=== PATIENT | female | born 1940 | race Caucasian/White ===

== ENCOUNTER 2019-05-03 00:52 | Outpatient (CLI) | payer OTHER, SELFPAY ==
--- NOTE | 2019-05-03 15:48 | DI.MAMMO_ITS ---
EXAM: MG MAMMO SCREENING CLINICAL HISTORY: SCREENING, HEALTH CARE MAINTENANCE, Z00.00 TECHNIQUE: Mammograms were interpreted according to the usual protocol including computer analysis w [employer] CAD system, tomosynthesis and C-view imaging. COMPARISON: [facility] [place] 2009 through 2016 FINDINGS: The breasts are composed of mainly fatty density , Breast Density category A. No suspicious masses or suspicious microcalcifications are seen. No skin thickening or abnormal axillary lymph nodes are seen. There has been no significant change from prior exams. IMPRESSION: BI-RADS Category 1 - Negative. Yearly screening mammography is recommended. Breast Density - Category A - Almost entirely fatty
--- NOTE | 2019-05-03 16:00 | DI.DEXA_ITS ---
EXAM: XR DEXA BONE DENSITY W/WO KATJA CLINICAL HISTORY: OSTEOPENIA, M85.80, OSTEOPOROSIS TECHNIQUE: Hologic densitometer COMPARISON: No exams were available for comparison FINDINGS: The KATJA image shows no evidence of compression fractures. The bone mineral density measurements of the lumbar spine correspond to a total T-score -1.3, in the osteopenic range. The bone mineral density measurements of the left hip correspond to a total T-scor e of -1.8 and a femoral neck T-score of -2.4, consistent with osteopenia. Bone mineral density measu rements of the left forearm correspond to a T-score of the distal 3rd of -2.5, in the osteoporotic ra nge. IMPRESSION: Osteoporosis of the left forearm. Osteopenia of the left hip and lumbar spine.
== END 2019-05-03 01:12 ==
PROVIDERS: PCP Internal Medicine Geriatric Medicine; Visit Provider Internal Medicine Geriatric Medicine
DX: M85.88 Other specified disorders of bone density and structure, other site (principal); M81.0 Age-related osteoporosis without current pathological fracture; Z12.31 Encounter for screening mammogram for malignant neoplasm of breast
CPT/HCPCS: 77063; 77067; 77080

== ENCOUNTER 2021-11-13 15:50 | Outpatient (REF) | payer MEDICARE, SELFPAY ==
[2021-11-13 18:40] LABS: HCT 43.1 % (36.0-46.0); HGB 14.1 g/dL (11.2-15.7); MCH 29.1 pg (27.0-33.0); MCHC 32.7 % (32.0-36.0); MCV 89 fL (80-95); MPV 10.7 fL (8.0-11.0); Platelet Count 325 10^3/uL (130-400); RBC 4.84 10^6/uL (3.93-5.22); RDW 13.7 % (11.7-14.6); RDW-SD 44.7 fL
[2021-11-13 20:08] LABS: Hemoglobin A1C 7.1 % (<5.7)
== END 2021-11-13 15:51 | disposition home or self-care (01) ==
LOC: NCHCN 15:50
PROVIDERS: PCP Internal Medicine Geriatric Medicine; Visit Provider Nurse Practitioner Family
DX: E11.39 Type 2 diabetes mellitus with other diabetic ophthalmic complication (principal); F03.90 Unspecified dementia, unspecified severity, without behavioral disturbance, psychotic disturbance, mood disturbance, and anxiety
CPT/HCPCS: 85027; 83036

== ENCOUNTER 2022-03-09 13:38 | Outpatient (REF) | payer MEDICARE, SELFPAY | END 2022-03-09 13:39 | disposition home or self-care (01) | LOC: NCHCN 13:38 | PROVIDERS: PCP Internal Medicine Geriatric Medicine; Visit Provider Nurse Practitioner Family | DX: F03.90 Unspecified dementia, unspecified severity, without behavioral disturbance, psychotic disturbance, mood disturbance, and anxiety (principal); R26.81 Unsteadiness on feet | CPT/HCPCS: 87086 ==

== ENCOUNTER 2022-05-12 11:28 | Outpatient (REF) | payer MEDICARE, SELFPAY ==
[2022-05-12 16:35] LABS: Hemoglobin A1C 10.3 % (<5.7)
[2022-05-13 10:34] LABS: BUN 21 mg/dL (7-18); CREATININE 1.1 mg/dL (0.55-1.02); Calcium 9.7 mg/dL (8.5-10.1); Estimated GFR 50.48 (mL/min/1.73m2); Glucose 334 mg/dL (74-106)
[2022-05-13 10:35] LABS: ALT 31 U/L (14-59); AST 26 U/L (15-37); Albumin 3.6 g/dL (3.4-5.0); Alkaline Phosphatase 135 U/L (46-116); Anion Gap 10.2 mmol/L (3-11); Bilirubin, Total 0.6 mg/dL (0.2-1.0); CO2 27.8 mmol/L (21.0-32.0); Chloride 102 mmol/L (98-107); Potassium 4.9 mmol/L (3.5-5.1); Sodium 140 mmol/L (136-145); Total Protein 7.8 g/dL (6.4-8.2)
== END 2022-05-12 11:29 | disposition home or self-care (01) ==
LOC: NCHCN 11:28
PROVIDERS: PCP Internal Medicine Geriatric Medicine; Visit Provider Nurse Practitioner Family
DX: E11.39 Type 2 diabetes mellitus with other diabetic ophthalmic complication (principal)
CPT/HCPCS: 80053; 83036

== ENCOUNTER 2022-11-16 09:48 | Inpatient (IN) | payer MEDICARE, SELFPAY ==
[2022-11-16] VITALS (69 sets, daily range): BP systolic 106–172; BP diastolic 48–110; PULSE 64–97; RESP 16–60; TEMP 36.4–38.4; O2SAT 91–98
--- NOTE | 2022-11-16 09:53 | W.ED.GENAD ---
Discharge Plan Disposition Patient Disposition: Admit to [facility] Discharge Details Clinical Impression: Acute encephalopathy, Prolonged Q-T interval on ECG, Acute hypernatremia, Hypoalbuminemia, HHS (hypothenar hammer syndrome), Ketonuria, Glucosuria, AUGUSTA (acute kidney injury) Admit Date/Time: 11/16/22 12:53 Admit Provider: Wesley Dean Attending Provider: Wesley Dean Primary Care Provider: Gil Hernandes ED Provider: Gil Kenny Discharge Data Discharge Date/Time-TO BE ENTERED AT DEPARTURE: 11/16/22 15:56 HPI General Date/Time Provider Initiated Documentation: 11/16/22 09:53. HPI Narrative: HPI This is an 81-year-old female coming from home with a history of diabetes now with elevated fingerstick blood glucose greater than 500 reportedly according to paramedics. Patient reportedly had had a dry cough. She has received 200 cc of crystalloid. Patient was with home health and family this morning. She is a DNI DNR. She reportedly recently had a scratchy voice. Unable to obtain additional history secondary to the patient's acute encephalopathy. Exam General: Chronically ill-appearing in no acute distress speaking in complete sentences. Head: Normocephalic, atraumatic. Eye: Pupils equal reactive 3 to 2 mm. Ear, nose, mouth, throat: Dry mucous membranes. Secretions normally. No hemotympanum bilaterally. Neck: Trachea midline. Cardiovascular: Well-perfused distal extremities. Respiratory: Nonlabored respiration. Clear lungs bilaterally. Gastrointestinal: Nondistended abdomen. Soft nontender. Musculoskeletal: No signs of trauma to bilateral upper and lower extremities.Right hip ecchymosis. Skin: Normal for age and race, grossly normal temperature and turgor. No acute rash. Neurologic: GCS 8: E1, V2, M5. MDM This is an altered febrile 81-year-old DNI DNR female seen on arrival with elevated blood sugar concerning for DKA. Will obtain labs to determine if patient has an anion gap. Will obtain 2 sets of blood cultures COVID and lactate and treat empirically with ceftriaxone. Given right hip bruise will obtain pelvis x-ray and chest x-ray in addition to CT head. Given unclear downtime will also obtain CK to assess for rhabdomyolysis. Will provide 1 L of IV fluids. Will obtain ECG to assess for dysrhythmia and troponin to assess for myocardial injury. No tonic-clonic activity to suggest seizure. No focal neurological deficits to suggest benefit from MRI as my suspicion for CVA that would be amenable to tPA is exceedingly low. Given acute encephalopathy patient may have intracranial hemorrhage. No pain out of proportion to suggest necrotizing soft tissue infection. We will place a temp sensing Rico and send a urinalysis. 10:21 AM Given prolonged QTc on ECG will treat with 2 g of magnesium. 10:34 AM Mildly elevated lactic acidosis with a serum lactate of 2.0 mmol/L. CBC with no anemia leukocytosis nor thrombocytopenia. Venous blood gas with no acidemia. Mild decrease in bicarbonate. 11:08 AM I spoke with the patient's daughter and they reported that she has a history of Alzheimer's and has had gradual decline over the past several weeks. She ate supper normally last night. She did vomit after drinking some milk. She has been increasingly gagging on her foods. They are interested in palliative care consult and a care management consult. They may want to take the patient home. 11:18 AM I spoke with Jessica nurse from palliative care who said that she will try to have Dr. Kirby, to see the patient and her family later today. 11:[address] head read as no acute process. Pelvis showing no fracture nor dislocation. Chest x-ray with no acute findings. Negative acetaminophen, ethanol levels. CK mildly elevated but less than 6 times above normal and not consistent with rhabdomyolysis. Normal magnesium. Mildly low TSH. We will reflex to free T4. Negative troponin. Comprehensive metabolic panel showing hypernatremia. Mild decreased bicarbonate. Anion gap acidosis. AUGUSTA. Hypoalbuminemia. 11:40 AM Glucose with bicarbonate greater than 15 and pH greater than 7.3 with signs of coma on exam I am concerned for the possibility of HHS. Patient is not hypokalemic at the moment. We will add on a phosphate. We will add a second liter of IV fluids. Unfortunately I cannot add on a serum awesome's nor serum ketones nor assess for hypophosphatemia. Will initiate insulin drip at 0.1 units/kg/h. We will also add 20 mEq of the patient's second liter of IV fluids. 11:45 AM Negative respiratory viral panel. Reassuring normal free T4. I spoke with Dr. Garza from critical care who advised second liter of fluids with LR and 20 mEq of potassium. She will come to evaluate the patient. 12:24 PM I spoke with Dr. Garza who advised adding acyclovir which I ordered at 10 mg/kg assuming patient's weight is [address] Kirby from palliative care met with the patient and her family in the ED. 12:41 PM Urinalysis showing ketonuria and glucosuria. Nitrite negative reassuring against UTI. 12:50 PM I spoke with Dr. Dean from the hospitalist service who agreed graciously to accept the patient for hospitalization. 1:42 PM Patient's fingerstick was near 300. As result I decreased her insulin drip to 0.05 units/kg/h and I changed her fluids to D5 NS. 2:42 PM Repeat chemistry showing persistent hypernatremia. Persistently low bicarbonate. Mildly improved anion gap at 16.7. Improving AUGUSTA. Improving hyperglycemia. Chronic conditions affecting the care of the patient: Alzheimer's diabetes History obtained from an outside historian: Patient's daughters External record review: [facility] [place] [facility] [Diagnostic interpretations performed by me:] [Per my independent interpretation chest x-ray shows:] [Per my independent interpretation EKG shows:] Narrow complex normal sinus rhythm at a rate of 97. Normal axis. CT within normal limits. Markedly prolonged QTc of [address] segment abnormalities. No T wave inversions. No acute injury pattern. No prior for comparison. Medications: Insulin fluid & antibiotics Social determinants of health affecting disposition: N/A Management discussed with: Critical care and hospitalist teams Treatment/interventions considered: Intubation but deferred given DNI DNR CODE STATUS. Response to therapies provided: Persistent encephalopathy in the ED Related Data Home Medications Medication Instructions Recorded Confirmed acetaminophen 500 mg tablet 1,000 mg PO BID 11/17/22 11/17/22 cefpodoxime 200 mg tablet 200 mg PO BID #10 tabs 11/17/22 empagliflozin 25 mg tablet 25 mg PO DAILY 11/17/22 11/17/22 (Jardiance) lorazepam 0.5 mg tablet 0.5 mg PO Q4H PRN anxiety #10 tabs 11/17/22 morphine concentrate 100 mg/5 mL See Rx Instructions PO Q1H PRN #30 11/17/22 (20 mg/mL) oral solution mL Previous Rx's Medication Instructions Recorded cefpodoxime 200 mg tablet 200 mg PO BID #10 tabs 11/17/22 lorazepam 0.5 mg tablet 0.5 mg PO Q4H PRN anxiety #10 tabs 11/17/22 morphine concentrate 100 mg/5 mL See Rx Instructions PO Q1H PRN #30 11/17/22 (20 mg/mL) oral solution mL Allergies Allergy/AdvReac Type Severity Reaction Status Date / Time No Known Allergies Allergy Unverified 10/17/15 14:01 PFSH All Active Problems (Updated 11/17/22 @ 12:16 by Sondra Falk MD) Bedbound (Acute) Incontinence in female (Chronic) both urine and feces Impaired ambulation (Chronic) no longer walking Encounter for hospice care discussion (Acute) AD (Alzheimer's disease) (Chronic) advanced FAST 7c Advanced care planning/counseling discussion (Acute) Palliative care encounter (Acute) AU[place]UTA (acute kidney injury) (Acute) Sinusitis chronic, sphenoidal (Acute) AUGUSTA (acute kidney injury) (Acute) Hyperosmolar hyperglycemic state (HHS) (Acute) Acute encephalopathy (Acute) Prolonged Q-T interval on ECG (Acute) Acute hypernatremia (Acute) Hypoalbuminemia (Acute) HHS (hypothenar hammer syndrome) (Acute) Ketonuria (Acute) Glucosuria (Acute) Social History Smoking/Tobacco Use Status: Never Smoking risk assessment performed?: Yes Drug use: Never Housing: house Critical Care Time Critical Care Time Critical Care Time: Yes Total Critical Care Time: 45 Attestation: Bedside assessment in the setting acute encephalopathy
--- NOTE | 2022-11-16 10:00 | RT.EKG_ITS ---
APPROVED REPORT Exam: Resting ECG Reason for Exam: Altered mental status Patient Location: E HR:97 bpm ECG Measurements Heart Rate 97 AXIS MO 170 P 3 QRSd 78 QRS 23 QT 415 T -70 QTc 529 Conclusion Sinus rhythm...normal P axis, V-rate 60- 99 Borderline T abnormalities, diffuse leads...T flat/neg Prolonged QT interval...QTc >500mS Narrow complex normal sinus rhythm at a rate of 97. Normal axis. MO within normal limits. Markedly prolonged QTc of [address] segment abnormalities. No T wave inversions. No acute injury lucho gant. No prior for comparison.
--- NOTE | 2022-11-16 10:00 | DI.RAD_ITS ---
Exam(s) XR PELVIS AP EXAM: XR PELVIS AP CLINICAL HISTORY: Right hip bruise. TECHNIQUE: 2D digital imaging was performed. One image was obtained. COMPARISON: No exams were available for comparison FINDINGS: BONES: No acute fracture is present. No bony destructive lesion is seen. JOINTS: No dislocation present. Degenerative changes are seen in the hips bilaterally. There also de generative changes seen in the lower lumbar spine. SOFT TISSUE: Atherosclerosis. IMPRESSION: No acute fracture or dislocation. DATA REPOSITORY: RADIATION DOSE DELIVERED:
--- NOTE | 2022-11-16 10:02 | DI.RAD_ITS ---
Exam(s) XR CHEST 1V IN DI DEPT EXAM: XR CHEST 1V IN DI DEPT CLINICAL HISTORY: Altered mental status TECHNIQUE: 2D digital imaging was performed of the chest. One image was obtained. An AP view was ob tained. COMPARISON: No exams were available for comparison FINDINGS: There is poor inspiration. MEDIASTINUM: Normal. HEART: Normal. PULMONARY VASCULATURE: Normal. LUNGS: No focal consolidating infiltrates. PLEURAL SPACE: No pleural effusion or pneumothorax. There is scarring in the left costophrenic angle. BONE:Within normal limits for the patient's age. OTHER FINDINGS:Normal. IMPRESSION: No acute pulmonary findings. DATA REPOSITORY: RADIATION DOSE DELIVERED:
[2022-11-16 10:29] LABS: BE (Venous) -6 mmol/L (-2-3); HCO3 (Venous) 20 mmol/L (23-28); O2 Sat (Venous) 94 %; TCO2 (Venous) 18 mmol/L (24-29); pCO2 (Venous) 36 mmHg (41-51); pH (Venous) 7.35 (7.31-7.41); pO2 (Venous) 71 mmHg
[2022-11-16 10:30] LABS: Abs Immature Grans 0.03 10^3/uL (0.0-0.06); Absolute Basophil Count 0.05 10^3/uL (0.0-0.2); Absolute Lymphocyte Count 1.09 10^3/uL (1.2-3.4); Absolute Monocyte Count 0.46 10^3/uL (0.1-0.8); Absolute Neutrophil Count 8.91 10^3/uL (1.2-6.7); Basophils % 0.5; HCT 47.9 % (36.0-46.0); HGB 15.3 g/dL (11.2-15.7); Immature Grans % 0.3; Lymphocytes % 10.3; MCH 28.6 pg (27.0-33.0); MCHC 31.9 % (32.0-36.0); MCV 90 fL (80-95); MPV 10.2 fL (8.0-11.0); Monocytes % 4.4; Neutrophils % 84.5; Platelet Count 317 10^3/uL (130-400); RBC 5.35 10^6/uL (3.93-5.22); RDW 13.9 % (11.7-14.6); RDW-SD 45.1 fL; WBC 10.54 10^3/uL (4.4-10.8)
[2022-11-16] MEDS: Normal Saline 1,000 ML 1000 ML IV ×2 (10:50→11:30)
[2022-11-16] MEDS: cefTRIAXone 2 GM/50 ML BAG IVPB (10:50)
[2022-11-16] MEDS: ACETAMINOPHEN 1,000 MG/100 ML BTL 400 MG IVPB (10:50)
--- NOTE | 2022-11-16 10:59 | DI.CT_ITS ---
Exam(s) CT HEAD WO EXAM: CT HEAD WO CLINICAL HISTORY: Altered mental status. TECHNIQUE: Imaging Protocol: Axial computed tomography images with coronal and sagittal reformatted images were created and reviewed COMPARISON: No exams were available for comparison FINDINGS: Ventricles and Extra axial spaces: Normal in size and morphology for the patient's age. Hemorrhage: None. Cerebral parenchyma: There are areas of decreased attenuation in the white matter most consistent wit h small vessel ischemic disease. No mass effect is identified. Midline shift: None. Brainstem/Cerebellum: Normal. Calvarium: Normal. Visualized Paranasal sinuses/Mastoids: There is opacification of the sphenoid sinuses bilaterally. T here is a fluid level in the right sphenoid sinus. Soft Tissues: Unremarkable. IMPRESSION: 1. No acute intracranial process. 2. Findings were discussed with Dr. Kenny at 11:11 a.m. on 11/16/2022. RADIATION DOSE DELIVERED: 749.75mGy.cm Total DLP DATA REPOSITORY: All CT scans at this facility are submitted to the National Radiology Data Registry (NRDR) Dose Index Registry (DIR) with the [employer] (ACR). RADIATION OPTIMIZATION: All CT scans at this facility use at least one of these dose optimization te chniques: automated exposure control; mA and/or kV adjustment per patient size (includes targeted exa ms where dose is matched to clinical indication); or iterative reconstruction.
[2022-11-16 11:05] LABS: Acetaminophen < 2 ug/mL (10-30)
[2022-11-16 11:14] LABS: ALT 28 U/L (14-59); AST 24 U/L (15-37); Alkaline Phosphatase 154 U/L (46-116); Anion Gap 18.5 mmol/L (3-11); BUN 42 mg/dL (7-18); Bilirubin, Total 0.4 mg/dL (0.2-1.0); CO2 20.5 mmol/L (21.0-32.0); CREATININE 1.5 mg/dL (0.55-1.02); Calcium 9.4 mg/dL (8.5-10.1); Chloride 114 mmol/L (98-107); Creatine Kinase 238 U/L (26-192); Estimated GFR 34.79 (mL/min/1.73m2); Glucose 435 mg/dL (74-106); Magnesium 2.4 mg/dL (1.8-2.4); Sodium 153 mmol/L (136-145); TSH (W/Ref FT4) 0.31 uIU/mL (0.36-3.74); Total Protein 8.4 g/dL (6.4-8.2); Troponin I < 50 ng/L (<or=60)
[2022-11-16 11:16] LABS: ETHANOL BLOOD < 3.0 mg/dL (<10)
[2022-11-16 11:38] LABS: COVID-19 PCR Negative (Negative); Influenza A PCR Negative (Negative); Influenza B PCR Negative (Negative); RSV PCR Negative (Negative)
[2022-11-16 11:41] LABS: Source Nasopharynx
[2022-11-16 11:44] LABS: FREE T4 1.01 ng/dL (0.76-1.46)
[2022-11-16 12:02] LABS: Bilirubin Negative (Negative); Blood Negative (Negative); Clarity Clear (Clear); Glucose >=1000 mg/dL (Negative); Ketones 40 mg/dL (Negative); Leukocyte Esterase Negative (Negative); Nitrite Negative (Negative); Urobilinogen 0.2 mg/dL (Up to 0.2)
[2022-11-16] MEDS: Lactated Ringers 1,000 ML 1000 ML IV (12:15)
[2022-11-16] MEDS: MAGNESIUM SULFATE 2 GM/50 ML BAG IVPB (12:38)
--- NOTE | 2022-11-16 12:51 | W.PULMCC ---
General Date of Service Date of service: 11/16/22 Time of Service: 12:00 Reason for Admission to ICU: AMS, possible HHS Assessment and Plan Assessment and plan (1) Acute encephalopathy: Status: Acute (2) Prolonged Q-T interval on ECG: Status: Acute (3) Acute hypernatremia: Status: Acute (4) Hyperosmolar hyperglycemic state (HHS): Status: Acute (5) AUGUSTA (acute kidney injury): Status: Acute (6) Hypoalbuminemia: Status: Acute (7) Sinusitis chronic, sphenoidal: Status: Acute Assessment and plan: This is an 81 yo with Alzeihmers dementia who presents with mild HHS. Her baseline 6 months ago was walking and some verbal communication. The subacute worsening course could reflect HHS, but I do worry about an underlying infectious process given her fever. She is not a reliable participant in interview or in complaining of pain or other issues. Until a possible infectious source has been ruled out, I would recommend continuing ceftriaxone (will treat sinusitis seen on CT) and would add acyclovir to cover for a potential viral encephalitis. Her daughters did not want to proceed with an LP to rule out infection and would not want any invasive procedure. I do recommend treating the HHS as we normally would with an insulin infusion. She is having alot of urine output, so she may require extra fluid resuscitation. her cardiac POCUS found normal function and a collapsed IVC. Recommendations Pulmonary: No acute concerns Cardiac: Prolonged QTc - EKG in am - ensure K and Mg are adequately repleted Renal: AUGUSTA - presumed pre-renal - will monitor improvement with IVF's - strict I/O's - has Rico I&O: Intake & Output 11/13/22 11/14/22 11/15/22 11/16/22 23:59 23:59 23:59 23:59 Weight 68 kg Daily Fluid Goal:: positive GI Nutrition: Nutrition - NPO for now - reassess with improvement in mental status Infectious Disease: Sinusitis - seen on chest CT - ceftriaxone will cover - procalcitonin level ?Encephalitis - MRI brain w and wo if Cr allows - acyclovir for viral encephalitis coverage for now Neurologic: Encephalopathy - HHS vs possible encephalitis vs CVA - MRI with and without (if able) - palliative consult Endocrine: HHS - insluin infusion - replete K and M - BMP and VBG q4h Lines: PIV Rico Prophylaxis: Lovenox Code Status: DNR/DNI Subjective Critical and life-threatening events over the past 24 hours: This is an 81 yo presenting to the ED with an elevated fingerstick and subacute functional decline. Her daughters are present and provided all of the history. Jenni has Alzheimers and has been functionally worsening, but they state 6 months ago she was walking and had minimal verbal communication. Over the past 2 weeks she has worsened to the point of not moving on her own at all and not speaking at all anymore. She has not complained of any issues (although she never really does). She was eating and drinking normally. On arrival to the ED she does have some metabolic changes that could reflect mild HHS/DKA with an increased anion gap, high glucose, ketonuria and a slightly decreased bicarb. She also have a sodium to 153 and an AUGUSTA. Her head CT, CXR, pelvis Xrays are normal (head CT with fluid in sphenoids ?sinusitis?). Her urine is not concerning for infection. There are ketones and glucose in the urine. In discussing care for their mother, her daughters present did not want invasive, painful procedures and confirmed their mom's DNR/DNI status. They would not want an LP to further assess for infectious etiology. If their mom does not make improvements mentally/functionally in the next couple days, they would lean more towards a comfort directed plan and requested a palliative care consultation. Exam Narrative Exam Narrative: Gen: NAD, normal respiratory effort, well-nourished HENT: PERRL, nasal turbinates normal without erythema or inflammation, moist oral mucosa Chest: No respiratory distress, normal appearance of chest, clear to auscultation bilaterally, no crackles or wheezes, normal inspiratory effort Heart: regular rate and rhythym, IV/ holosystolic murmur Abdomen: Non-distended, soft, non tender Extremities: No clubbing, edema, cyanosis, rashes Neuro: AAOx0, right upper and lower extremity weakness. Negative Babinski bilaterally Psych: cooperative Most Recent VS/Results Last Vital Signs Temp 38.4 C H 11/16/22 09:54 Pulse 90 11/16/22 09:54 Resp 20 11/16/22 12:45 BP 116/59 L 11/16/22 09:54 Pulse Ox 94 11/16/22 09:54 Laboratory Results - last 24 hr 11/16/22 11/16/22 11/16/22 10:20 10:20 10:20 WBC RBC Hgb Hct MCV MCH MCHC RDW Plt Count MPV Immature Gran % Neutrophils % Lymphocytes % Monocytes % Eosinophils % Basophils % Nucleated RBC % Absolute Neutrophils Absolute Lymphocytes Absolute Monocytes Absolute Eosinophils Absolute Basophils VBG pH VBG pCO2 VBG pO2 VBG HCO3 VBG Total CO2 VBG O2 Saturation VBG Base Excess VBG Lactate 2.0 H Sodium 153 H Potassium 4.0 Chloride 114 H Carbon Dioxide 20.5 L Anion Gap 18.5 H BUN 42 H Creatinine 1.5 H Est GFR (CKD-EPI 2020) 34.79 Glucose 435 H Calcium 9.4 Magnesium 2.4 Total Bilirubin 0.4 AST 24 ALT 28 Alkaline Phosphatase 154 H Creatine Kinase 238 H Troponin I < 50 Total Protein 8.4 H Albumin 3.0 L TSH 0.31 L Free T4 1.01 Urine Color Urine Clarity Urine pH Ur Specific Robinson Urine Protein Urine Ketones Urine Blood Urine Nitrite Urine Bilirubin Urine Urobilinogen Ur Leukocyte Esterase Urine Glucose Acetaminophen < 2 Ethyl Alcohol < 3.0 COVID-19 Source SARS-CoV-2 (PCR) Influenza Type A (PCR) Influenza Type B (PCR) RSV (PCR) 11/16/22 11/16/22 11/16/22 10:20 10:20 10:30 WBC 10.54 RBC 5.35 H Hgb 15.3 Hct 47.9 H MCV 90 MCH 28.6 MCHC 31.9 L RDW 13.9 Plt Count 317 MPV 10.2 Immature Gran % 0.3 Neutrophils % 84.5 Lymphocytes % 10.3 Monocytes % 4.4 Eosinophils % 0.0 Basophils % 0.5 Nucleated RBC % 0.0 Absolute Neutrophils 8.91 H Absolute Lymphocytes 1.09 L Absolute Monocytes 0.46 Absolute Eosinophils 0.00 Absolute Basophils 0.05 VBG pH 7.35 VBG pCO2 36 L VBG pO2 71 VBG HCO3 20 L VBG Total CO2 18 L VBG O2 Saturation 94 VBG Base Excess -6 L VBG Lactate Sodium Potassium Chloride Carbon Dioxide Anion Gap BUN Creatinine Est GFR (CKD-EPI 2020) Glucose Calcium Magnesium Total Bilirubin AST ALT Alkaline Phosphatase Creatine Kinase Troponin I Total Protein Albumin TSH Free T4 Urine Color Urine Clarity Urine pH Ur Specific Robinson Urine Protein Urine Ketones Urine Blood Urine Nitrite Urine Bilirubin Urine Urobilinogen Ur Leukocyte Esterase Urine Glucose Acetaminophen Ethyl Alcohol COVID-19 Source Nasopharynx SARS-CoV-2 (PCR) Negative Influenza Type A (PCR) Negative Influenza Type B (PCR) Negative RSV (PCR) Negative 11/16/22 11:55 WBC RBC Hgb Hct MCV MCH MCHC RDW Plt Count MPV Immature Gran % Neutrophils % Lymphocytes % Monocytes % Eosinophils % Basophils % Nucleated RBC % Absolute Neutrophils Absolute Lymphocytes Absolute Monocytes Absolute Eosinophils Absolute Basophils VBG pH VBG pCO2 VBG pO2 VBG HCO3 VBG Total CO2 VBG O2 Saturation VBG Base Excess VBG Lactate Sodium Potassium Chloride Carbon Dioxide Anion Gap BUN Creatinine Est GFR (CKD-EPI 2020) Glucose Calcium Magnesium Total Bilirubin AST ALT Alkaline Phosphatase Creatine Kinase Troponin I Total Protein Albumin TSH Free T4 Urine Color Yellow Urine Clarity Clear Urine pH 5.0 Ur Specific Robinson 1.010 Urine Protein Negative Urine Ketones 40 H Urine Blood Negative Urine Nitrite Negative Urine Bilirubin Negative Urine Urobilinogen 0.2 Ur Leukocyte Esterase Negative Urine Glucose >=1000 H Acetaminophen Ethyl Alcohol COVID-19 Source SARS-CoV-2 (PCR) Influenza Type A (PCR) Influenza Type B (PCR) RSV (PCR) Review of Systems Unobtainable due to mental condition Time spent with patient Time spent in Critical Care: 60 Time spent in Critical care included: Performing procedures not included in c.c time, Coordination of care, Chart review, Documenting critically ill care, Time at immediate bedside and Discussing critically ill care with other medical staff Pocus Exam Limited Cardiac Exam DATE OF EXAM: 11/16/22 TIME OF EXAM: 12:15 PROVIDER THAT PERFORMED THE STUDY: Giana Gibson IS THIS A REPEAT EXAM DURING THIS ENCOUNTER: no REASON FOR EXAM: Evaluation of LV function VISUALIZED STRUCTURES: four chambers, Interventricular septum and IVC VIEW OBTAINED: Apical 4-Chamber, Parasternal long-axis, Parasternal short-axis and Subxiphoid PERTINENT FINDINGS/IMPRESSION: IVC inspiratory collapsability Exam complete
[2022-11-16] MEDS: POTASSIUM CHLORIDE 20 MEQ/100 ML BAG 50 MEQ IVPB (12:55)
[2022-11-16] MEDS: ACYCLOVIR SODIUM 700 MG in Normal Saline 250 ML 250 MG IVPB (12:56)
[2022-11-16 13:36] LABS: Troponin I < 50 ng/L (<or=60)
--- NOTE | 2022-11-16 14:01 | W.PALLCONSUL ---
Date of service: 11/16/22 Time of Service: 14:01 History of Present Illness Narrative: Mrs. Durbin is an 81-year-old woman with history of Alzheimer's disease (from [place], [place]) who was brought to the ED this morning because of gradual decline over the last several weeks.Evaluation revealed worsening of her usual mental status, hyperglycemia (Hyperosmolar hyperglycemia) with acute change in mental status . PMH include dementia, Type 2 DM, heart murmur. Patient is non-verbal and non-interactive, even with her eyes open. History with daughter Sondra Durbin. First noted sxs of Alzheimer: at least 6 years ago. 01/2022. of cancer at home (on hospice). Before , he made family promise that they would care for her at home and make sure she is comfortable. His wishes that she would be cared for at home till the end of her life. Daughters were not able to specifically recall patient saying what she wanted, she has been pretty quiet and nonverbal for at least a year. She has lived at home alone since then with caregivers and family present throughout the day. They put her to bed at night and she stays in bed all night (alone is apartment in duplex adjacent to son and family). No hx falls. No hospitalizations that they can recall. They are not sure that she ever had a memory evaluation. Sounds like over the last month her FAST scare is down to 7C She has been eating a lot less over the past couple of weeks, family has had to begun to feed her. Some choking noted over this time. Care Team: Primary Care physician: Gabriela Rodriguez [facility] Social HX: Sondra Durbin [phone]? Son and DIL live in adjacent duplex. BOth daughter live up the road. Impression of currents health status: (daughter) not doing well over the last month and certainly downhill over the last year What bothers you the most:(daughter) nothing specific. What worries you the most:(daughter): They want to make sure that she is comfortable Goals:(daughter): Patient's husabnd cared for her until he . He wanted that she be taken care of , but preferred that she be kept at home. Function: Ambulation:A few weeks ago she was walking slowly with a walker. Over the 2 weeks, she gradually lost ability to walk, they have been transferring her from bed to wheelchair. She is able to sit up in bed on her own. SIngle words only for a year. yes and NO. Seems to listen and nod. Shakes her head yes and no. ADLs: Needs to be hand fed over the last month. Total care the last month. They note occasional coughing with swallowing over the last month iADLs: Totally dependent Hearing: Vision: Falls: None Cognition: Fast 7C Palliative Performance Scale % Ambulation Activity and Evidence of Disease Self Care Intake Level of Consciousness 100 Full Normal activity, no evidence of disease Full Normal Full 90 Full Normal activity, some evidence of disease Full Normal Full 80 Full Normal activity with effort, some evidence of disease Full Normal or reduced Full 70 Reduced Unable to do normal work, some evidence of disease Full Normal or reduced Full 60 Reduced Unable to do hobby or some housework, significant disease Occasional assist necessary Normal or reduced Full or confusion 50 Mainly sit/lie Unable to do any work, extensive disease Considerable assistance required Normal or reduced Full or confusion 40 Mainly in bed Unable to do any work, extensive disease Mainly assistance Normal or reduced Full, drowsy, or confusion 30 Totally bed bound Unable to do any work, extensive disease Total care Reduced Full, drowsy, or confusion 20 Totally bed bound Unable to do any work, extensive disease Total care Minimal sips Full, drowsy, or confusion 10 Totally bed bound Unable to do any work, extensive disease Total care Mouth care only Drowsy or coma 0 - - - - Patient Score: Over the last 2 weeks: 40 Functional Assessment Scale (FAST) 1 No difficulty either subjectively or objectively 2 Complains of forgetting location of objects. Subjective work difficulties 3 Decreased job functioning evident to co-workers. Difficulty in traveling to new locations. Decreased organizational capacity* 4 Decreased ability to perform complex task, (e.g., planning dinner for guests, handling personal finances, such as forgetting to pay bills, etc) 5 Requires assistance in choosing proper clothing to wear for the day, season, or occasion, (e.g., pt may wear the same clothing repeatedly unless supervised*) 6 Occasionally or more frequently over the past weeks for the following*: A) Improperly putting on clothes without assistance or cueing B) Unable to bathe properly (not able to choose proper water temp) C) Inability to handle mechanics of toileting (e.g., forget to flush the toilet, does not wipe properly or properly dispose of toilet tissue) D) Urinary Incontinence E) Fecal Incontinence 7 A) Ability to speak limited to approximately < 6 intelligible different words in the course of an average day or in the course of an intensive interview. B) Speech ability is limited to the use of a single intelligible word in an average day or in the course of an intensive interview C) Ambulatory ability is lost (cannot walk without personal assistance) D) Cannot sit up without assistance (e.g., the individual will fall over if there are not lateral rests [arms] on the chair) E) Loss of ability to smile. F) Loss of ability to hold up head independently *Scored primarily on information obtained from a knowledgeable informant. Patient Score: 7C Spiritual history: Not queried, nanoelectronics engineer visit offered and declined for now Palliative review of systems: Patient unable to respond. Pain: Dyspnea: GI symptoms: Appetite: Depression: Anxiety: None Emotional Distress: Spiritual/Existential Distress: Labs: Reviewed Advanced Care Planning: Advanced Directive:Daughters recall that she had an AD (will be on line). Daughters say: no feeding tube, no life support. NOthing to prolong htings, Health Care Agent: Brother Quentin Durbin to be primary with Sondra and Tejinder participating as well. COLST: Never one filled out (her had jovi Limitations: Assessment and Plan Assessment and plan (1) Palliative care encounter: Status: Acute Assessment and plan: 81-year-old woman with moderate to end-stage dementia, by history FAST 7C over the previous month. Now admitted with obtundation found to be febrile with no obvious source of fever along with hyperosmolar coma with markedly elevated glucose. Patient had been cared for lovingly by family and paid caregivers in their home in [place] since of her 10 months ago. Their plan was to keep her at home for the rest of her life. They welcomed hospice admission when she was ready. Family meeting today initially with daughters Stormy. Group then convened about an hour later with the addition of healthcare agent and son Quentin Durbin and Sondra's (patient's son-in-law) At my initial meeting with Sondra and Bronwyn, they felt that she would want to have comfort measures only. They were concerned that she seemed to be in pain with potassium infusion and with frequent blood sticks. Their goal was to get her home and they would consider having us transition her to comfort measures only in the hospital overnight and then arrange hospice admission and transfer back to home tomorrow. However son-in-law, who is one of the team who helps care for her at home, felt that she needed to be in better shape in order to get home, fever controlled and infection treated before she would be comfortable enough to transfer back to home. Lengthy discussion. I shared my concerns that interventions in the intensive care unit to treat her hyperglycemia and hyperosmolar state would require frequent blood draws, IV sticks, perhaps pressors, perhaps central lines. This does not seem to align with the goals of care that the family outlined. Each family member was able to express their goals and what they thought Jenni's goals would be. All agree that her ultimate goal would be to be at home and to remain there for the end of life. What they do not agree on is timeline for that. In the end they all agreed to continue basic treatment overnight until morning with antibiotics, antipyretics, IV fluids, blood work to monitor electrolytes and blood sugar and correction of electrolytes. They do not want her to have CPR or intubation, pressors. They would like to be consulted before any invasive procedures (i.e. central lines, etc.) are performed. Jenni is family wishes to reevaluate her clinical status in the morning. They would also like to meet with hospice team in the morning for hospice consult. COLST form was completed today reflecting DNR/DNI, treat with antibiotics and IV fluids but avoid invasive interventions (see discussion above for details). Phone call to Dr. Hewitt, she is aware that family would like to meet with hospice tomorrow. Hospice should call daughter Sondra at [phone]. Since son Quentin Durbin is primary healthcare agent (and does not have a cell phone), Sondra will contact Quentin to tell him what time he should come to this meeting with hospice. I am also can ask member the palliative care team to meet with the family tomorrow to follow-up on today's discussion. Family agrees. Case reviewed with Dr. Dean and patient's ICU nurse. 16 to 30 minutes spent today on Advance Care Planning. family participated voluntarily. Advance care planning may include (not limited to) explanation and discussion of advance directives, choosing and appointing healthcare agents, alternatives to various ACP tools, discussion of (and if indicated, completion of) COLST form, discussion of patient's values and overall goals for treatment, palliative and disease directive care options, ways to avoid hospital readmission including hospice discussions, care preferences should the patient's several other adverse health events.See today's palliative care note for additional information. (2) Advanced care planning/counseling discussion: Status: Acute (3) AD (Alzheimer's disease): Status: Chronic (4) Hyperosmolar hyperglycemic state (HHS): Status: Acute (5) Acute encephalopathy: Status: Acute PFSH All Active Problems (Updated 11/16/22 @ 16:51 by Amy Kirby MD) AD (Alzheimer's disease) (Chronic) Advanced care planning/counseling discussion (Acute) Palliative care encounter (Acute) [place] (acute kidney injury) (Acute) Sinusitis chronic, sphenoidal (Acute) [place] (acute kidney injury) (Acute) Hyperosmolar hyperglycemic state (HHS) (Acute) Acute encephalopathy (Acute) Prolonged Q-T interval on ECG (Acute) Acute hypernatremia (Acute) Hypoalbuminemia (Acute) HHS (hypothenar hammer syndrome) (Acute) Ketonuria (Acute) Glucosuria (Acute) Social History Smoking/Tobacco Use Status: Never Smoking risk assessment performed?: Yes Drug use: Never Exam Narrative Exam Narrative: Flushed appearing elderly woman laying in bed. Opens eyes to sounds, does not turn head. Does not respond to voice. No respiratory distress or tachypnea. Results Last Vital Signs Temp 38.4 C H 11/16/22 09:54 Pulse 90 11/16/22 13:31 Resp 21 11/16/22 13:40 BP 141/110 H 11/16/22 13:31 Pulse Ox 97 11/16/22 13:31 Labs 11/16/22 10:20 11/16/22 14:05 Labs: Laboratory Results - last 24 hr 11/16/22 11/16/22 11/16/22 10:20 10:20 10:20 WBC RBC Hgb Hct MCV MCH MCHC RDW Plt Count MPV Immature Gran % Neutrophils % Lymphocytes % Monocytes % Eosinophils % Basophils % Nucleated RBC % Absolute Neutrophils Absolute Lymphocytes Absolute Monocytes Absolute Eosinophils Absolute Basophils VBG pH VBG pCO2 VBG pO2 VBG HCO3 VBG Total CO2 VBG O2 Saturation VBG Base Excess VBG Lactate 2.0 H Sodium 153 H Potassium 4.0 Chloride 114 H Carbon Dioxide 20.5 L Anion Gap 18.5 H BUN 42 H Creatinine 1.5 H Est GFR (CKD-EPI 2020) 34.79 Glucose 435 H Calcium 9.4 Magnesium 2.4 Total Bilirubin 0.4 AST 24 ALT 28 Alkaline Phosphatase 154 H Creatine Kinase 238 H Troponin I < 50 Total Protein 8.4 H Albumin 3.0 L TSH 0.31 L Free T4 1.01 Urine Color Urine Clarity Urine pH Ur Specific [place] Urine Protein Urine Ketones Urine Blood Urine Nitrite Urine Bilirubin Urine Urobilinogen Ur Leukocyte Esterase Urine Glucose Acetaminophen < 2 Ethyl Alcohol < 3.0 COVID-19 Source SARS-CoV-2 (PCR) Influenza Type A (PCR) Influenza Type B (PCR) RSV (PCR) 11/16/22 11/16/22 11/16/22 10:20 10:20 10:30 WBC 10.54 RBC 5.35 H Hgb 15.3 Hct 47.9 H MCV 90 MCH 28.6 MCHC 31.9 L RDW 13.9 Plt Count 317 MPV 10.2 Immature Gran % 0.3 Neutrophils % 84.5 Lymphocytes % 10.3 Monocytes % 4.4 Eosinophils % 0.0 Basophils % 0.5 Nucleated RBC % 0.0 Absolute Neutrophils 8.91 H Absolute Lymphocytes 1.09 L Absolute Monocytes 0.46 Absolute Eosinophils 0.00 Absolute Basophils 0.05 VBG pH 7.35 VBG pCO2 36 L VBG pO2 71 VBG HCO3 20 L VBG Total CO2 18 L VBG O2 Saturation 94 VBG Base Excess -6 L VBG Lactate Sodium Potassium Chloride Carbon Dioxide Anion Gap BUN Creatinine Est GFR (CKD-EPI 2020) Glucose Calcium Magnesium Total Bilirubin AST ALT Alkaline Phosphatase Creatine Kinase Troponin I Total Protein Albumin TSH Free T4 Urine Color Urine Clarity Urine pH Ur Specific [place] Urine Protein Urine Ketones Urine Blood Urine Nitrite Urine Bilirubin Urine Urobilinogen Ur Leukocyte Esterase Urine Glucose Acetaminophen Ethyl Alcohol COVID-19 Source Nasopharynx SARS-CoV-2 (PCR) Negative Influenza Type A (PCR) Negative Influenza Type B (PCR) Negative RSV (PCR) Negative 11/16/22 11/16/22 11:55 13:10 WBC RBC Hgb Hct MCV MCH MCHC RDW Plt Count MPV Immature Gran % Neutrophils % Lymphocytes % Monocytes % Eosinophils % Basophils % Nucleated RBC % Absolute Neutrophils Absolute Lymphocytes Absolute Monocytes Absolute Eosinophils Absolute Basophils VBG pH VBG pCO2 VBG pO2 VBG HCO3 VBG Total CO2 VBG O2 Saturation VBG Base Excess VBG Lactate Sodium Potassium Chloride Carbon Dioxide Anion Gap BUN Creatinine Est GFR (CKD-EPI 2020) Glucose Calcium Magnesium Total Bilirubin AST ALT Alkaline Phosphatase Creatine Kinase Troponin I < 50 Total Protein Albumin TSH Free T4 Urine Color Yellow Urine Clarity Clear Urine pH 5.0 Ur Specific [place] 1.010 Urine Protein Negative Urine Ketones 40 H Urine Blood Negative Urine Nitrite Negative Urine Bilirubin Negative Urine Urobilinogen 0.2 Ur Leukocyte Esterase Negative Urine Glucose >=1000 H Acetaminophen Ethyl Alcohol COVID-19 Source SARS-CoV-2 (PCR) Influenza Type A (PCR) Influenza Type B (PCR) RSV (PCR)
[2022-11-16] MEDS: INSULIN REGULAR IN 0.9 % NACL 100 UNIT/100 ML BAG IV (14:05)
[2022-11-16] MEDS: POTASSIUM CHLORIDE/D5-0.9%NACL 1,000 ML 1000 MEQ IV (14:08)
[2022-11-16 14:23] LABS: Anion Gap 16.7 mmol/L (3-11); BUN 36 mg/dL (7-18); CO2 20.3 mmol/L (21.0-32.0); CREATININE 1.3 mg/dL (0.55-1.02); Calcium 8.9 mg/dL (8.5-10.1); Chloride 115 mmol/L (98-107); Estimated GFR 41.31 (mL/min/1.73m2); Glucose 353 mg/dL (74-106); Potassium 4.1 mmol/L (3.5-5.1); Sodium 152 mmol/L (136-145)
--- NOTE | 2022-11-16 17:28 | HPE_ITS ---
Date of service: 11/16/22 Time of Service: 17:29 Assessment and Plan Assessment and plan (1) AD (Alzheimer's disease): Status: Chronic Assessment and plan: Advanced. (2) Advanced care planning/counseling discussion: Status: Acute Assessment and plan: Family in agreement that they would like her to return home, hopefully tomorrow after a discussion with Hospice. DNR/DNI (3) [place] (acute kidney injury): Status: Acute Assessment and plan: Creatinine 1.5. Acutally unclear of her baseline. Receiving IV fluids for this issue and HHS. (4) Hyperosmolar hyperglycemic state (HHS): Status: Acute Assessment and plan: Family endorses that patient is taking Jardiance; not on her med list in the chart. Family also stated she drinks alot of milk and cranberry juice. They will start limiting the intake of mild and stop cranberry juice. The goal is not good glucose control necessarily, but to avoid another episode of HHS. (5) Prolonged Q-T interval on ECG: Status: Acute Assessment and plan: Not medication related. Will not pursue d/t desire for hospice care. (6) Acute hypernatremia: Status: Acute Assessment and plan: Not critical at this juncture. (7) Acute encephalopathy: Status: Acute Assessment and plan: Encephalopathy vs effects of HHS in background of dementia. Dr Gibson, critical care, consulted and Rocephin and acyclovir. She has improved with better glucose control and is discharging with plans for hospice admission at home in very near future. History of Present Illness History of Present Illness Chief Complaint: Fatigue, Weakness Narrative: This is an 81 yo female with a h/o Alzheimers dementia, DM2. She lives at home with family caregivers. Over the last appx 2 weeks her food/fluid intake has diminished and she has been less interactive and more fatigued appearing. She has essentially been nonverbal for appx 1 year so has not communicated any complaints to her family. Paramedics blood glucose check was over 500. She recived IV fluids en route and then in the ED. Lab glucose was 435. Insulin drip initiated. Palliative also saw patient with family present in the ED. Decision made to continue basic treatment overnight but refrain from any invasive procedures. She is a DNR/DNI and a COLST form was completed with Dr Kirby / palliative. Family requested meeting with hospice the following day. Review of Systems All systems reviewed & are unremarkable except as noted in HPI and below PFSH All Active Problems AD (Alzheimer's disease) (Chronic) Advanced care planning/counseling discussion (Acute) Palliative care encounter (Acute) [place] (acute kidney injury) (Acute) Sinusitis chronic, sphenoidal (Acute) [place] (acute kidney injury) (Acute) Hyperosmolar hyperglycemic state (HHS) (Acute) Acute encephalopathy (Acute) Prolonged Q-T interval on ECG (Acute) Acute hypernatremia (Acute) Hypoalbuminemia (Acute) HHS (hypothenar hammer syndrome) (Acute) Ketonuria (Acute) Glucosuria (Acute) Social History Smoking/Tobacco Use Status: Never Smoking risk assessment performed?: Yes Drug use: Never Housing: house Meds Allergies and Home Medications Allergies Allergy/AdvReac Type Severity Reaction Status Date / Time No Known Allergies Allergy Unverified 10/17/15 14:01 Home Medications Medication Instructions Recorded Confirmed Type ciprofloxacin HCl 500 mg tablet 500 mg PO BID 10 days 10/12/15 Rx lovastatin 40 mg tablet 40 mg PO DAILY 10/12/15 10/12/15 History metronidazole 500 mg tablet 500 mg PO TID 10 days 10/12/15 Rx Exam Narrative Exam Narrative: General: elderly woman laying in bed. Opens eyes to sounds at times but most keeps them closed. She did nod yes in response to asking if she could hear me. Lungs: clear. Nonlabored breathing. CV: RRR Abd: Soft, ND. Exts: No pitting edema. cool, dry skin. Results Labs 11/17/22 05:50 11/17/22 05:50 Labs: Laboratory Results - last 24 hr 11/16/22 11/16/22 11/16/22 10:20 10:20 10:20 WBC RBC Hgb Hct MCV MCH MCHC RDW Plt Count MPV Immature Gran % Neutrophils % Lymphocytes % Monocytes % Eosinophils % Basophils % Nucleated RBC % Absolute Neutrophils Absolute Lymphocytes Absolute Monocytes Absolute Eosinophils Absolute Basophils VBG pH VBG pCO2 VBG pO2 VBG HCO3 VBG Total CO2 VBG O2 Saturation VBG Base Excess VBG Lactate 2.0 H Sodium 153 H Potassium 4.0 Chloride 114 H Carbon Dioxide 20.5 L Anion Gap 18.5 H BUN 42 H Creatinine 1.5 H Est GFR (CKD-EPI 2020) 34.79 Glucose 435 H Calcium 9.4 Magnesium 2.4 Total Bilirubin 0.4 AST 24 ALT 28 Alkaline Phosphatase 154 H Creatine Kinase 238 H Troponin I < 50 Total Protein 8.4 H Albumin 3.0 L TSH 0.31 L Free T4 1.01 Urine Color Urine Clarity Urine pH Ur Specific [place] Urine Protein Urine Ketones Urine Blood Urine Nitrite Urine Bilirubin Urine Urobilinogen Ur Leukocyte Esterase Urine Glucose Acetaminophen < 2 Ethyl Alcohol < 3.0 COVID-19 Source SARS-CoV-2 (PCR) Influenza Type A (PCR) Influenza Type B (PCR) RSV (PCR) 11/16/22 11/16/22 11/16/22 10:20 10:20 10:30 WBC 10.54 RBC 5.35 H Hgb 15.3 Hct 47.9 H MCV 90 MCH 28.6 MCHC 31.9 L RDW 13.9 Plt Count 317 MPV 10.2 Immature Gran % 0.3 Neutrophils % 84.5 Lymphocytes % 10.3 Monocytes % 4.4 Eosinophils % 0.0 Basophils % 0.5 Nucleated RBC % 0.0 Absolute Neutrophils 8.91 H Absolute Lymphocytes 1.09 L Absolute Monocytes 0.46 Absolute Eosinophils 0.00 Absolute Basophils 0.05 VBG pH 7.35 VBG pCO2 36 L VBG pO2 71 VBG HCO3 20 L VBG Total CO2 18 L VBG O2 Saturation 94 VBG Base Excess -6 L VBG Lactate Sodium Potassium Chloride Carbon Dioxide Anion Gap BUN Creatinine Est GFR (CKD-EPI 2020) Glucose Calcium Magnesium Total Bilirubin AST ALT Alkaline Phosphatase Creatine Kinase Troponin I Total Protein Albumin TSH Free T4 Urine Color Urine Clarity Urine pH Ur Specific [place] Urine Protein Urine Ketones Urine Blood Urine Nitrite Urine Bilirubin Urine Urobilinogen Ur Leukocyte Esterase Urine Glucose Acetaminophen Ethyl Alcohol COVID-19 Source Nasopharynx SARS-CoV-2 (PCR) Negative Influenza Type A (PCR) Negative Influenza Type B (PCR) Negative RSV (PCR) Negative 11/16/22 11/16/22 11/16/22 11:55 13:10 14:05 WBC RBC Hgb Hct MCV MCH MCHC RDW Plt Count MPV Immature Gran % Neutrophils % Lymphocytes % Monocytes % Eosinophils % Basophils % Nucleated RBC % Absolute Neutrophils Absolute Lymphocytes Absolute Monocytes Absolute Eosinophils Absolute Basophils VBG pH VBG pCO2 VBG pO2 VBG HCO3 VBG Total CO2 VBG O2 Saturation VBG Base Excess VBG Lactate Sodium 152 H Potassium 4.1 Chloride 115 H Carbon Dioxide 20.3 L Anion Gap 16.7 H BUN 36 H Creatinine 1.3 H Est GFR (CKD-EPI 2020) 41.31 Glucose 353 H Calcium 8.9 Magnesium Total Bilirubin AST ALT Alkaline Phosphatase Creatine Kinase Troponin I < 50 Total Protein Albumin TSH Free T4 Urine Color Yellow Urine Clarity Clear Urine pH 5.0 Ur Specific [place] 1.010 Urine Protein Negative Urine Ketones 40 H Urine Blood Negative Urine Nitrite Negative Urine Bilirubin Negative Urine Urobilinogen 0.2 Ur Leukocyte Esterase Negative Urine Glucose >=1000 H Acetaminophen Ethyl Alcohol COVID-19 Source SARS-CoV-2 (PCR) Influenza Type A (PCR) Influenza Type B (PCR) RSV (PCR) Last Vital Signs Temp 37.1 C 11/16/22 17:13 Pulse 71 11/16/22 16:36 Resp 22 11/16/22 16:36 BP 116/59 L 11/16/22 16:36 Pulse Ox 98 11/16/22 16:36 Time Spent Time spent with Patient: 40-54 minutes Time was spent: preparing to see the patient(eg.review tests), obtaining and/or reviewing separately otained hiistory, ordering medications,tests, procedures, referring, communicating with other health child care, indepentently interpreting results, counseling the patient and care coordination
[2022-11-16] MEDS: POTASSIUM CHLORIDE/D5-0.45NACL 1,000 ML 125 MEQ IV (17:55)
[2022-11-16] MEDS: Enoxaparin 40 MG/0.4 ML SYR SC (18:22)
[2022-11-16] MEDS: Insulin Aspart 300 UNITS/3 ML PEN SC ×2 (18:27)
[2022-11-16 20:23] LABS: Anion Gap 11.1 mmol/L (3-11); BUN 29 mg/dL (7-18); CO2 23.9 mmol/L (21.0-32.0); CREATININE 1.1 mg/dL (0.55-1.02); Calcium 8.8 mg/dL (8.5-10.1); Chloride 120 mmol/L (98-107); Estimated GFR 50.48 (mL/min/1.73m2); Glucose 259 mg/dL (74-106); Potassium 3.6 mmol/L (3.5-5.1); Sodium 155 mmol/L (136-145)
[2022-11-16] MEDS: Normal Saline Flush 10 ML SYR (22:24)
[2022-11-17] VITALS (12 sets, daily range): BP systolic 110–132; BP diastolic 57–61; PULSE 60–76; RESP 15–26; TEMP 36.4–37.3; O2SAT 95–96
[2022-11-17] MEDS: Insulin Aspart 300 UNITS/3 ML PEN SC ×3 (00:15→12:03)
[2022-11-17] MEDS: POTASSIUM CHLORIDE/D5-0.45NACL 1,000 ML 125 MEQ IV (04:04)
[2022-11-17 06:22] LABS: Abs Immature Grans 0.03 10^3/uL (0.0-0.06); Absolute Basophil Count 0.08 10^3/uL (0.0-0.2); Absolute Eosinophil Count 0.04 10^3/uL (0.0-0.7); Absolute Lymphocyte Count 2.29 10^3/uL (1.2-3.4); Absolute Monocyte Count 0.67 10^3/uL (0.1-0.8); Absolute Neutrophil Count 6.94 10^3/uL (1.2-6.7); Basophils % 0.8; Eosinophils % 0.4; HCT 44.9 % (36.0-46.0); HGB 14.1 g/dL (11.2-15.7); Immature Grans % 0.3; Lymphocytes % 22.8; MCH 28.5 pg (27.0-33.0); MCHC 31.4 % (32.0-36.0); MCV 91 fL (80-95); MPV 10.2 fL (8.0-11.0); Monocytes % 6.7; Platelet Count 244 10^3/uL (130-400); RBC 4.94 10^6/uL (3.93-5.22); RDW 14.2 % (11.7-14.6); RDW-SD 47.3 fL; WBC 10.05 10^3/uL (4.4-10.8)
[2022-11-17 06:59] LABS: ALT 30 U/L (14-59); AST 41 U/L (15-37); Albumin 2.6 g/dL (3.4-5.0); Alkaline Phosphatase 123 U/L (46-116); Anion Gap 12.3 mmol/L (3-11); BUN 24 mg/dL (7-18); Bilirubin, Total 0.4 mg/dL (0.2-1.0); CO2 23.7 mmol/L (21.0-32.0); Calcium 8.9 mg/dL (8.5-10.1); Chloride 118 mmol/L (98-107); Glucose 298 mg/dL (74-106); Sodium 154 mmol/L (136-145); Total Protein 7.4 g/dL (6.4-8.2)
[2022-11-17 07:08] LABS: Procalcitonin < 0.1 ng/mL
[2022-11-17] MEDS: cefTRIAXone 2 GM/50 ML BAG IVPB (09:27)
[2022-11-17] MEDS: Insulin Glargine 300 UNITS/3 ML PEN 15 UNITS SC (09:28)
--- NOTE | 2022-11-17 10:42 | IN_ITS ---
PT Notes Visit Reasons: hyperosmolar hyperglycemia, alt mental status Physical Therapy Inpatient Initial Evaluation Date: 11/17/2022 Referring Doctor: Wesley Dean MD PT Orders: PT CONSULT: Limited ability Precautions: Fall. Standard. Activity as tolerated. Patient Profile/Admitting Diagnosis: Jenni is an 81-year-old female with dementia who presented to the ED on 11/16/2022 due to high blood glucose, and dry cough. She was admitted to ICU level of care with diagnosis of acute kidney injury, hyperosmolar hyperglycemic state, prolonged QT interval, acute hyponatremia, and acute encephalopathy. Referral was sent to PT for mobility assessment and safe discharge recommendations. PMHX: All Active Problems? AD (Alzheimer's disease) (Chronic) Advanced care planning/counseling discussion (Acute) Palliative care encounter (Acute) AUGUSTA (acute kidney injury) (Acute) Sinusitis chronic, sphenoidal (Acute) AUGUSTA (acute kidney injury) (Acute) Hyperosmolar hyperglycemic state (HHS) (Acute) Acute encephalopathy (Acute) Prolonged Q-T interval on ECG (Acute) Acute hypernatremia (Acute) Hypoalbuminemia (Acute) HHS (hypothenar hammer syndrome) (Acute) Ketonuria (Acute) Glucosuria (Acute) Social History/Home Situation: Lives alone in a home where son Quentin and family live in an attached building to his mother's. All three siblings and in-laws are closely involved with patient's care. Able to transfer to and from wheelchair using walker but family often leonidas hugs patient to move from one place to another for the past week now due to gradual wekaness. Equipment Owned/DME: FWW, patient will be getting a hospital bed per family Subjective: Agreeable to being moved with encouragement from family and this provider. No non-verbal expressions of pain. Did stop after walking about 20 feet using FWW today and appeared fatigued so needed to sit down. Objective: General Observation: Supine in bed. Telemetry monitoring in place. Rico catheter in place. IV access through left UE. Mental Status: Disoriented as to place, time, and purpose. Recognizes faces of family members and smiles at them. Verbalization significantly limited. Pain: None displayed nor reported Vital Signs: WNL as closely monitored via tele ROM: Right Upper Extremity: Shoulder Flexion WFL. Shoulder abduction WFL. Elbow flexion WFL. Wrist flexion WFL. Functional opening and closing of hand WFL. Left Upper Extremity: Shoulder Flexion WFL. Shoulder abduction WFL. Elbow flexion WFL. Wrist flexion WFL. Functional opening and closing of hand WFL. Right Lower Extremity: Hip flexion WFL. Hip abduction WFL. Knee flexion WFL. Ankle dorsiflexion WFL. Ankle plantarflexion WFL. Left Lower Extremity: Hip flexion WFL. Hip abduction WFL. Knee flexion WFL. Ankle dorsiflexion WFL. Ankle plantarflexion WFL. Strength: Right Upper Extremity: Grossly 3-/5 Left Upper Extremity: Grossly 3-/5 Right Lower Extremity: Grossly 3-/5 Left Lower Extremity: Grossly 3-/5 Bed Mobility/Transfers: Supine to sit minimal assist of 1 with moderate visual, tactile, and verbal cues provided for safety Sit to stand contact guard assist of 2 and wheelchair follow of lori Saavedra with moderate visual, tactile, and verbal cues provided for safety; Nurse Leah managing IV pole Stand to sit contact guard assist of 2 and wheelchair follow of lori Saavedra with moderate visual, tactile, and verbal cues provided for safety; Nurse Leah managing IV pole Bed to reclining chair contact guard assist of 2 and wheelchair follow of lori Saavedra with moderate visual, tactile, and verbal cues provided for safety; Nurse Leah managing IV pole Gait: Guided patient and patient's family with level surface ambulation of 20 feet requiring contact guard assist of 1 + stand by assist of another for wheelchair follow and IV po;e management. Family memebers watching on stand by for safety and to encourage continued mobility perofrmance. Balance: Static Sitting: Good Dynamic Sitting: Fair Static Standing: Fair Dynamic Standing: Poor Special Tests: Mobility Limitations Standardized Measure [facility] AM-PAC 6 clicks Basic Mobility Inpatient Short Form: Raw Score: 12 CMS Score: 69% deficit Informed Consent/Education: Patient/famil were instructed in purpose of PT consult. ASSESSMENT: Patient was able to complete mobility assessment as above and will require assistance of 1-2 persons for all mobility ADL performance and the use of a front wheeled walker to reduce fall risk at home. Advised family memebres about safe technique for transfers in and out of the car for home transport today. Patient presents with clinical signs and symptoms consistent with current/admitting diagnoses that have resulted to mobility limitations, gait instability, generalized weakness, and overall ADL decline as demonstrated by the following impairment level findings: 1. Decreased strength to B UE/LE major muscle groups 2. Impaired sitting/standing balance 3. Impaired activity tolerance 4. Shortness of breath Impairments are contributing to the following functional limitations: 1. Decline in bed mobility skills 2. Decline in transfer skills 3. Difficulty with ambulation without assistive device and physical assistance 4. Increased completion time for mobility ADL performance 5. Increased risk for falls 6. Difficulty with managing steps alone safely Patient is assessed [place] a 40523 moderate complexity based on the following: History: 81-year-old female with past medical history as indicated above Examination: Demonstrable impairment in strength, balance, and mobility level with underlying impairments and functional limitations as exhibited above as well as deficit score of 69% utilizing the [facility] Mobility Inpatient Short Form Presentation: Evolving Decision Makin moderate complexity Goals: N/A. PT evaluation and 1 treatment session for family/caregiver training for safe mobility performance. Plan of Care/Treatment Plan: N/A. PT evaluation and 1 treatment session for family/caregiver training for safe mobility performance. DISCHARGE RECOMMENDATIONS: [] Home with no services [] [X] Home with services. Patient will benefit from home health PT services in order to progress mobility level using least restrictive assistive ambulatory device, assess home safety, identify additional equipment needs, and establish a functional maintenance program that will increase ability of patient to remain at home. Family members feel equipped with making their mother safe at home. [] Home with outpatient PT [] [] SNF for continued rehabilitation [] [] Insert Cutter Care [] [] SNF versus LTC based on ability to participate and progress [] TREATMENT CODE/TIME: 76481 x 20 minutes for 1 unit, 74279 x 16 for 1 unit minutes beginning at 10:42 AM. Thank you for the opportunity to participate in the care of this patient. Jojo Stevens PT, DPT, CLT [facility] [place], [place]
--- NOTE | 2022-11-17 11:49 | W.PM.DS.N ---
Date of service: 11/17/22 Time of Service: 11:49 DS: Diagnosis Discharge Diagnosis (1) AD (Alzheimer's disease): Status: Chronic Asessment and Plan: Advanced. (2) Advanced care planning/counseling discussion: Status: Acute Asessment and Plan: Family in agreement that they would like her to return home, hopefully tomorrow after a discussion with Hospice. DNR/DNI (3) AUGUSTA (acute kidney injury): Status: Acute Asessment and Plan: Resolved with IV hydration. (4) Hyperosmolar hyperglycemic state (HHS): Status: Acute Asessment and Plan: Family endorses that patient is taking Jardiance; not on her med list in the chart. Family also stated she drinks alot of milk and cranberry juice.? They will start limiting the intake of mild and stop cranberry juice.? The goal is not good glucose control necessarily, but to avoid another episode of HHS. (5) Prolonged Q-T interval on ECG: Status: Acute Asessment and Plan: Not medication related. Will not pursue d/t desire for hospice care. (6) Acute hypernatremia: Status: Acute Asessment and Plan: Not critical at this juncture.? (7) Acute encephalopathy: Status: Acute Asessment and Plan: Encephalopathy vs effects of HHS in background of dementia. Dr Gibson, critical care, consulted and Rocephin and acyclovir. She has improved with better glucose control and is discharging with plans for hospice admission at home in very near future.? ? Discharge Plan Disposition Patient Disposition: Home W/Home Health Services Condition: Poor Discharge Details Reason For Visit: hyperosmolar hyperglycemia, alt mental status Admit Date/Time: 11/16/22 12:53 Admit Provider: Wesley Dean Attending Provider: Wesley Dean Primary Care Provider: Gil Hernandes [facility] Course: This is an 81 yo female with a h/o Alzheimers dementia, DM2.? She lives at home with family caregivers.? Over the last appx 2 weeks her food/fluid intake has diminished and she has been less interactive and more fatigued appearing.? She has essentially been nonverbal for appx 1 year so has not communicated any complaints to her family. Paramedics blood glucose check was over 500.? She recived IV fluids en route and then in the ED.? Lab glucose was 435.? Insulin drip initiated.? Palliative also saw patient with family present in the ED.? Decision made to continue basic treatment overnight but refrain from any invasive procedures.? She is a DNR/DNI and a COLST form was completed with Dr Kirby / palliative.? Family requested meeting with hospice the following day. See Diagnosis Palliative to see patient at home and then referral to hospice Home Meds and New Rx's Prescriptions: New cefpodoxime 200 mg tablet 200 mg PO BID Qty: 10 0RF Rx Instructions: must administer with a meal/food Discontinued lovastatin 40 MG tablet 40 mg PO DAILY ciprofloxacin HCl 500 MG tablet 500 mg PO BID 10 Days 0RF metronidazole 500 MG tablet 500 mg PO TID 10 Days 0RF Discharge Instructions Activity:: Activity as Tolerated Equipment/Supplies:: No Equipment Needed Diet:: As Tolerated Discharge Orders Discharge Orders: Discharge Order (Routine); Ordered 11/17/22 Ordered By: Wesley Dean DS: Summary Time Spent with Patient providing and/or coordinating discharge services: Greater than 30 minutes Status at Discharge Functional status at discharge: bed bound (transferred with assistance today with PT. Walked 20ft with PT.) Overall status at discharge: patient is progressing back to baseline Mental Status: other (Dementia) Speech and Movement: other (Nonverbal) Mood: other (Dementia) Affect: blunted Exam Narrative Exam Narrative: General: elderly woman laying in bed. She did not open eyes for me this AM. Lungs: clear. Nonlabored breathing. CV: RRR Abd: Soft, ND. Exts: No pitting edema. cool, dry skin. Psych Mental Status: other (Dementia) Speech and Movement: other (Nonverbal) Mood: other (Dementia) Affect: blunted DS: Data Vitals/I&O Vitals and I&O: Vital Signs Temperature 37.3 C 11/17/22 09:55 Temperature Source Temporal Artery Scan 11/17/22 09:55 Pulse 62 11/17/22 09:40 Pulse Rhythm Regular 11/17/22 00:41 Pulse 63 11/17/22 09:40 Respiratory Rate 16 11/17/22 09:40 Respiratory Effort Normal, Non-Labored 11/17/22 00:41 Respiratory Depth Normal 11/17/22 00:41 Respiratory Pattern Normal 11/17/22 00:41 Blood Pressure 132/57 L 11/17/22 09:40 Blood Pressure Mean 79 11/17/22 09:40 Blood Pressure Position Left Lateral 11/16/22 16:36 Pulse Oximetry 96 11/17/22 09:40 Oxygen Delivery Method Room Air 11/17/22 00:49 Oxygen Flow Rate 0 11/17/22 00:49 Pain Level 0 11/17/22 00:49 Intake & Output 11/16/22 11/16/22 11/17/22 11:59 23:59 11:59 Intake Total 1150 / 4813.033 3663.033 / 4813.033 1000 / 1000 Output Total 1800 / 1800 1200 / 1200 Balance 1150 / 3013.033 1863.033 / 3013.033 -200 / -200 Weight 68 kg 66 kg 65.8 kg Intake: IV 1150 / 4813.033 3663.033 / 4813.033 1000 / 1000 Output: Urine 1800 / 1800 1200 / 1200 Other: Urine Color Pale Pale Pale Yellow Urine Appearance Clear Clear Clear Comment pt unable to answer, does not appear in distress or discomfort Data Completed and Pending Labs on day of discharge: Labs from last 24 hours 11/17/22 11/17/22 11/17/22 05:50 05:50 05:50 WBC 10.05 RBC 4.94 Hgb 14.1 Hct 44.9 MCV 91 MCH 28.5 MCHC 31.4 L RDW 14.2 Plt Count 244 MPV 10.2 Immature Gran % 0.3 Neutrophils % 69.0 Lymphocytes % 22.8 Monocytes % 6.7 Eosinophils % 0.4 Basophils % 0.8 Nucleated RBC % 0.0 Absolute Neutrophils 6.94 H Absolute Lymphocytes 2.29 Absolute Monocytes 0.67 Absolute Eosinophils 0.04 Absolute Basophils 0.08 Sodium 154 H Potassium 4.0 Chloride 118 H Carbon Dioxide 23.7 Anion Gap 12.3 H BUN 24 H Creatinine 1.0 Est GFR (CKD-EPI 2020) 56.60 Glucose 298 H Calcium 8.9 Total Bilirubin 0.4 AST 41 H ALT 30 Alkaline Phosphatase 123 H Troponin I Total Protein 7.4 Albumin 2.6 L Procalcitonin < 0.1 Urine Color Urine Clarity Urine pH Ur Specific [place] Urine Protein Urine Ketones Urine Blood Urine Nitrite Urine Bilirubin Urine Urobilinogen Ur Leukocyte Esterase Urine Glucose 11/16/22 11/16/22 11/16/22 22:00 20:02 14:05 WBC RBC Hgb Hct MCV MCH MCHC RDW Plt Count MPV Immature Gran % Neutrophils % Lymphocytes % Monocytes % Eosinophils % Basophils % Nucleated RBC % Absolute Neutrophils Absolute Lymphocytes Absolute Monocytes Absolute Eosinophils Absolute Basophils Sodium Cancelled 155 H 152 H Potassium Cancelled 3.6 4.1 Chloride Cancelled 120 H 115 H Carbon Dioxide Cancelled 23.9 20.3 L Anion Gap Cancelled 11.1 H 16.7 H BUN Cancelled 29 H 36 H Creatinine Cancelled 1.1 H 1.3 H Est GFR (CKD-EPI 2020) Cancelled 50.48 41.31 Glucose Cancelled 259 H 353 H Calcium Cancelled 8.8 8.9 Total Bilirubin AST ALT Alkaline Phosphatase Troponin I Total Protein Albumin Procalcitonin Urine Color Urine Clarity Urine pH Ur Specific [place] Urine Protein Urine Ketones Urine Blood Urine Nitrite Urine Bilirubin Urine Urobilinogen Ur Leukocyte Esterase Urine Glucose 11/16/22 11/16/22 13:10 11:55 WBC RBC Hgb Hct MCV MCH MCHC RDW Plt Count MPV Immature Gran % Neutrophils % Lymphocytes % Monocytes % Eosinophils % Basophils % Nucleated RBC % Absolute Neutrophils Absolute Lymphocytes Absolute Monocytes Absolute Eosinophils Absolute Basophils Sodium Potassium Chloride Carbon Dioxide Anion Gap BUN Creatinine Est GFR (CKD-EPI 2020) Glucose Calcium Total Bilirubin AST ALT Alkaline Phosphatase Troponin I < 50 Total Protein Albumin Procalcitonin Urine Color Yellow Urine Clarity Clear Urine pH 5.0 Ur Specific [place] 1.010 Urine Protein Negative Urine Ketones 40 H Urine Blood Negative Urine Nitrite Negative Urine Bilirubin Negative Urine Urobilinogen 0.2 Ur Leukocyte Esterase Negative Urine Glucose >=1000 H 11/16/22 10:40 Blood Blood Culture - Pending 11/16/22 10:20 Blood Blood Culture - Pending Preliminary micro results at discharge 11/16/22 10:40 Blood Culture - Pending Blood 11/16/22 10:20 Blood Culture - Pending Blood PFSH All Active Problems AD (Alzheimer's disease) (Chronic) Advanced care planning/counseling discussion (Acute) Palliative care encounter (Acute) [place]A (acute kidney injury) (Acute) Sinusitis chronic, sphenoidal (Acute) [place] (acute kidney injury) (Acute) Hyperosmolar hyperglycemic state (HHS) (Acute) Acute encephalopathy (Acute) Prolonged Q-T interval on ECG (Acute) Acute hypernatremia (Acute) Hypoalbuminemia (Acute) HHS (hypothenar hammer syndrome) (Acute) Ketonuria (Acute) Glucosuria (Acute) Social History Smoking/Tobacco Use Status: Never Smoking risk assessment performed?: Yes Drug use: Never Housing: house Time Spent with Patient Time Spent with Patient: <45 minutes Time was spent: preparing to see the patient(eg.review tests), obtaining and/or reviewing separately otained hiistory, ordering medications,tests, procedures, referring, communicating with other health healthcare economics manager, indepentently interpreting results, counseling the patient and care coordination
--- NOTE | 2022-11-17 12:02 | W.PALPGNOTE ---
Date of service: 11/17/22 Time of Service: 09:15 Assessment and Plan Assessment and plan (1) Encounter for hospice care discussion: Status: Acute Assessment and plan: Family agreed that their mother/in-law will benefit from hospice care at this point in her life. She will be admitted to hospice tomorrow. Orders for DME and for comfort kit sent. Hospital bed to be set up today, prior to Jenni heading home. (2) AD (Alzheimer's disease): Status: Chronic Assessment and plan: End-stage. Qualifies for hospice based on FAST score of 7c. (3) Advanced care planning/counseling discussion: Status: Acute Assessment and plan: Discussion started with Dr Kirby on 11/16 visit. Family feels comfortable with decision to bring her home on hospice. THey have already been providing hands-on care and are doing a wonderful job with Jenni's needs. (4) Palliative care encounter: Status: Acute Assessment and plan: No futher PC visits needed. (5) Impaired ambulation: Status: Chronic Assessment and plan: I asked Dr Dean, hospitalist, to be in order for PT to evaluate whether Jenni could go home in private vehicle or if she needed ambulance. Has not been OOB since admission. Defer to their advice. (6) Incontinence in female: Status: Chronic Assessment and plan: Will leave catheter in place. Did review signs of UTI in case she develops one in the future. (7) Bedbound: Status: Acute Assessment and plan: Very weak. Has been for a while. Subjective Subjective Patient reports: no new complaints and afebrile; denies tolerating a regular diet Interval history since last seen: Jenni Durbin is an 81 yo woman seen by Dr Kirby for initial Palliative Care consult on 11/16. I was asked to see her for follow up today. She has advanced Alzheimer's Dementia. Her FAST score is 7c. She is no longer ambulatory. She speaks minimally, less than 6 different words per day. When she speaks, it's usually one word at a time. She can nod and shake her head, sometimes with meaning, sometimes not. Her 2 daughters and one son in law, Doron, provide hands on care for her. She lives in a duplex with her son Quentin on the other side of the house. Quentin is her health care agent. The daughters were there throughout my visit; Quentin and Doron arrived near the end of the visit, last 20 minutes or so. The family team appears to work together well. THey all acted lovingly toward Jenni during my visit. She was admitted with abnormal blood sugars c/w HONK. She has never been on insulin in the past; there is no AIC in her [facility] chart. Her previous doctor, who has retired, was associated with [facility]; she now has ISAURO España out of [facility]. Her family are excellent caregivers. Jenni has no skin breakdown. She doesn't fall regularly, despite being non-ambulatory. THey do their best to get nutrition into her. THey are open to providing a lower sugar/carb diet to help manage her BS naturally. She is having more trouble swallowing in general. They would like to minimize her medications. As many as can be changed to liquid form, the better. Jenni doesn't seem to be in any pain. She is not agitated, despite being in the ICU. She seems to understand the general plan to get her home today. She has always expressed a desire to at home. Her late , Keven, was on hospice with [place], and he asked his children to keep their mother comfortable at home until her last days. THey seem prepared and willing to do this. Exam Narrative Exam Narrative: General: elderly woman laying in bed. She did not open eyes for me this AM. Lungs: clear. Nonlabored breathing. CV: RRR Abd: Soft, ND. Exts: No pitting edema. cool, dry skin. Psych Mental Status: other (Dementia) Speech and Movement: other (Nonverbal) Mood: other (Dementia) Affect: blunted Objective Last Vital Signs Temp 99.1 F 11/17/22 09:55 Pulse 62 11/17/22 09:40 Resp 16 11/17/22 09:40 BP 132/57 L 11/17/22 09:40 Pulse Ox 96 11/17/22 09:40 Laboratory Results - last 24 hr 11/16/22 11/16/22 11/16/22 11:55 13:10 14:05 WBC RBC Hgb Hct MCV MCH MCHC RDW Plt Count MPV Immature Gran % Neutrophils % Lymphocytes % Monocytes % Eosinophils % Basophils % Nucleated RBC % Absolute Neutrophils Absolute Lymphocytes Absolute Monocytes Absolute Eosinophils Absolute Basophils Sodium 152 H Potassium 4.1 Chloride 115 H Carbon Dioxide 20.3 L Anion Gap 16.7 H BUN 36 H Creatinine 1.3 H Est GFR (CKD-EPI 2020) 41.31 Glucose 353 H Calcium 8.9 Total Bilirubin AST ALT Alkaline Phosphatase Troponin I < 50 Total Protein Albumin Procalcitonin Urine Color Yellow Urine Clarity Clear Urine pH 5.0 Ur Specific [place] 1.010 Urine Protein Negative Urine Ketones 40 H Urine Blood Negative Urine Nitrite Negative Urine Bilirubin Negative Urine Urobilinogen 0.2 Ur Leukocyte Esterase Negative Urine Glucose >=1000 H 11/16/22 11/16/22 11/17/22 20:02 22:00 05:50 WBC RBC Hgb Hct MCV MCH MCHC RDW Plt Count MPV Immature Gran % Neutrophils % Lymphocytes % Monocytes % Eosinophils % Basophils % Nucleated RBC % Absolute Neutrophils Absolute Lymphocytes Absolute Monocytes Absolute Eosinophils Absolute Basophils Sodium 155 H Cancelled 154 H Potassium 3.6 Cancelled 4.0 Chloride 120 H Cancelled 118 H Carbon Dioxide 23.9 Cancelled 23.7 Anion Gap 11.1 H Cancelled 12.3 H BUN 29 H Cancelled 24 H Creatinine 1.1 H Cancelled 1.0 Est GFR (CKD-EPI 2020) 50.48 Cancelled 56.60 Glucose 259 H Cancelled 298 H Calcium 8.8 Cancelled 8.9 Total Bilirubin 0.4 AST 41 H ALT 30 Alkaline Phosphatase 123 H Troponin I Total Protein 7.4 Albumin 2.6 L Procalcitonin Urine Color Urine Clarity Urine pH Ur Specific [place] Urine Protein Urine Ketones Urine Blood Urine Nitrite Urine Bilirubin Urine Urobilinogen Ur Leukocyte Esterase Urine Glucose 11/17/22 11/17/22 05:50 05:50 WBC 10.05 RBC 4.94 Hgb 14.1 Hct 44.9 MCV 91 MCH 28.5 MCHC 31.4 L RDW 14.2 Plt Count 244 MPV 10.2 Immature Gran % 0.3 Neutrophils % 69.0 Lymphocytes % 22.8 Monocytes % 6.7 Eosinophils % 0.4 Basophils % 0.8 Nucleated RBC % 0.0 Absolute Neutrophils 6.94 H Absolute Lymphocytes 2.29 Absolute Monocytes 0.67 Absolute Eosinophils 0.04 Absolute Basophils 0.08 Sodium Potassium Chloride Carbon Dioxide Anion Gap BUN Creatinine Est GFR (CKD-EPI 2020) Glucose Calcium Total Bilirubin AST ALT Alkaline Phosphatase Troponin I Total Protein Albumin Procalcitonin < 0.1 Urine Color Urine Clarity Urine pH Ur Specific [place] Urine Protein Urine Ketones Urine Blood Urine Nitrite Urine Bilirubin Urine Urobilinogen Ur Leukocyte Esterase Urine Glucose
--- NOTE | 2022-11-17 13:14 | PHA.REVIEW2 ---
Pharmacy Admission Review Admission Clinical Review Admission Pharmacy Review: (Updated 11/17/22 @ 12:16 by Sondra Falk MD) Bedbound (Acute) Encounter for hospice care discussion (Acute) Advanced care planning/counseling discussion (Acute) Palliative care encounter (Acute) [place] (acute kidney injury) (Acute) Sinusitis chronic, sphenoidal (Acute) [place] (acute kidney injury) (Acute) Hyperosmolar hyperglycemic state (HHS) (Acute) Acute encephalopathy (Acute) Prolonged Q-T interval on ECG (Acute) Acute hypernatremia (Acute) Hypoalbuminemia (Acute) HHS (hypothenar hammer syndrome) (Acute) Ketonuria (Acute) Glucosuria (Acute) No Known Allergies Allergy (Unverified 10/17/15 14:01) Resuscitation Status DNR/DNI Height 5 ft 2 in Weight 65.8 kg Pharmacy Admission Review Renal Dosing Renal Dosing: BUN 24 mg/dL (7-18) H 11/17/22 05:50 Creatinine 1.0 mg/dL (0.55-1.02) 11/17/22 05:50 Medications needing adjustments: Reviewed (eCrCl 39 ml/min, all orders ok) List of meds needing interventions: acyclovir appropriately adjusted for renal impairment at 750 mg q12h dosing Anticoagulation Anticoagulation: Hgb 14.1 g/dL (11.2-15.7) 11/17/22 05:50 Hct 44.9 % (36.0-46.0) 11/17/22 05:50 Plt Count 244 10^3/uL (130-400) 11/17/22 05:50 Creatinine 1.0 mg/dL (0.55-1.02) 11/17/22 05:50 DVT Prophylaxis: Reviewed Medications: Enoxaparin Relevant Labs Relevant Labs: Sodium 154 mmol/L (136-145) H 11/17/22 05:50 Potassium 4.0 mmol/L (3.5-5.1) 11/17/22 05:50 Chloride 118 mmol/L (98-107) H 11/17/22 05:50 Magnesium 2.4 mg/dL (1.8-2.4) 11/16/22 10:20 DM Control Insulin Dosing, Diabetic Medication: lantus 15u daily + aspart per SS q6h (currently NPO) Cardiac Review Cardiac Review: Troponin I < 50 ng/L (<or=60) 11/16/22 13:10 Pharmacy Antibiotic Review Relevant Labs: Relevant Labs 11/17/22 05:50 Procalcitonin < 0.1
--- NOTE | 2022-11-17 14:15 | PHA.REVIEW2 ---
Pharmacy Admission Review Admission Clinical Review Admission Pharmacy Review: Bedbound (Acute) Encounter for hospice care discussion (Acute) Advanced care planning/counseling discussion (Acute) Palliative care encounter (Acute) [place] (acute kidney injury) (Acute) Sinusitis chronic, sphenoidal (Acute) [place] (acute kidney injury) (Acute) Hyperosmolar hyperglycemic state (HHS) (Acute) Acute encephalopathy (Acute) Prolonged Q-T interval on ECG (Acute) Acute hypernatremia (Acute) Hypoalbuminemia (Acute) HHS (hypothenar hammer syndrome) (Acute) Ketonuria (Acute) Glucosuria (Acute) No Known Allergies Allergy (Unverified 10/17/15 14:01) Resuscitation Status DNR/DNI Height 5 ft 2 in Weight 65.8 kg Pharmacy Admission Review Renal Dosing Renal Dosing: BUN 24 mg/dL (7-18) H 11/17/22 05:50 Creatinine 1.0 mg/dL (0.55-1.02) 11/17/22 05:50 Anticoagulation Anticoagulation: Hgb 14.1 g/dL (11.2-15.7) 11/17/22 05:50 Hct 44.9 % (36.0-46.0) 11/17/22 05:50 Plt Count 244 10^3/uL (130-400) 11/17/22 05:50 Creatinine 1.0 mg/dL (0.55-1.02) 11/17/22 05:50 Relevant Labs Relevant Labs: Sodium 154 mmol/L (136-145) H 11/17/22 05:50 Potassium 4.0 mmol/L (3.5-5.1) 11/17/22 05:50 Chloride 118 mmol/L (98-107) H 11/17/22 05:50 Magnesium 2.4 mg/dL (1.8-2.4) 11/16/22 10:20 Cardiac Review Cardiac Review: Troponin I < 50 ng/L (<or=60) 11/16/22 13:10 Pharmacy Antibiotic Review Relevant Labs: Relevant Labs 11/17/22 05:50 Procalcitonin < 0.1
== END 2022-11-17 15:30 | disposition home health service (06) | DRG 56 ==
LOC: ER 14:04 → ICU 15:58
PROVIDERS: Student in an Organized Health Care Education/Training Program; Admitting Provider Family Medicine; Emergency Provider Emergency Medicine; PCP Internal Medicine Geriatric Medicine; Visit Provider Family Medicine
DX: G30.9 Alzheimer's disease, unspecified (principal); E11.00 Type 2 diabetes mellitus with hyperosmolarity without nonketotic hyperglycemic-hyperosmolar coma (NKHHC); E87.0 Hyperosmolality and hypernatremia; G93.40 Encephalopathy, unspecified; N17.9 Acute kidney failure, unspecified; E87.20 Acidosis, unspecified; Z66 Do not resuscitate; E88.09 Other disorders of plasma-protein metabolism, not elsewhere classified; R94.31 Abnormal electrocardiogram [ECG] [EKG]; J32.3 Chronic sphenoidal sinusitis; F02.C0 Dementia in other diseases classified elsewhere, severe, without behavioral disturbance, psychotic disturbance, mood disturbance, and anxiety; Z79.84 Long term (current) use of oral hypoglycemic drugs; Z74.01 Bed confinement status; N39.46 Mixed incontinence; S70.01XA Contusion of right hip, initial encounter; X58.XXXA Exposure to other specified factors, initial encounter
CPT/HCPCS: 36410; 36415; 80048; 80053; 82550; 82805; 84145; 87040; 87637; 93005; 93308; 96365; 96367; 96368; 96375; 97162; 97530; 99285; 99291; J1650; 70450; 71045; 72170; 80320; 80329; 81003; 83605; 83735; 84439; 84443; 84484; 85025; 93010; 99222; 99239; J0131; J0133; J3480